=== PATIENT | female | born 1980 | race Caucasian/White ===

== ENCOUNTER 2024-04-24 21:18 | Observation (INO) | payer BC, SELFPAY ==
[2024-04-24] VITALS (15 sets, daily range): BP systolic 152; BP diastolic 77; PULSE 58–99; TEMP 36.5; O2SAT 96–97; BMI 42.4
--- NOTE | 2024-04-24 22:12 | CT_ITS ---
The [address] [address] Patient Name: ROBBI EL MRN: [id number] date: 1980 Sex: F Assigned Patient Location: ER Current Patient Location: ER Accession/Order Number: [id number] Exam Date: 04/24/2024 22:45 Report Date: 04/25/2024 00:20 At the request of: JOYA SALAZAR Procedure: CT abdomen pelvis w con CT ABDOMEN/PELVIS WITH IV CONTRAST. INDICATION: epigastric pain. COMPARISON: There are no other studies available for comparison. TECHNIQUE: Contiguous axial images were obtained from the lung bases to the pelvic floor following the intravenous administration of contrast. Coronal and sagittal reformations are provided. FINDINGS: LOWER LUNGS: Clear. LIVER/BILIARY TREE: No mass. No intrahepatic ductal dilatation. GALLBLADDER: No significant gallbladder wall thickening. Cholelithiasis. CBD: Normal CBD. SPLEEN: Normal in size. PANCREAS: No acute findings. No peripancreatic fluid or inflammation. No pancreatic duct dilatation. No discrete mass. ADRENALS: Normal. KIDNEYS: No hydronephrosis. No radiopaque calculus. STOMACH AND BOWEL: Stomach is unremarkable. No dilated bowel loops. No bowel wall thickening. APPENDIX: Normal appendix. PERITONEAL CAVITY: No fluid. No fat stranding. ABDOMINAL WALL: No subcutaneous stranding. No subcutaneous fluid collection. There is a small umbilical hernia containing fat. LYMPH NODES: No mesenteric or retroperitoneal lymphadenopathy by CT criteria. ABDOMINAL AORTA: No aneurysm. PELVIS: No acute abnormality. Bilateral tubal ligation clips noted. MUSCULOSKELETAL: No acute osseous abnormality. CT/CT abdomen pelvis w con IMPRESSION: 1. No acute abnormality in the abdomen or pelvis. 2. Cholelithiasis without evidence of acute cholecystitis. Consider gallbladder ultrasound if clinically indicated. Electronically authenticated by: PRISCILLA RAE Date: 04/25/2024 00:20
--- NOTE | 2024-04-24 22:14 | ECG_ITS ---
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
[2024-04-24] MEDS: MORPHINE SULFATE 4 MG/ML VIAL IV (22:26)
[2024-04-24] MEDS: ONDANSETRON PF 4 MG/2 ML VIAL IV (22:26)
[2024-04-24] MEDS: 0.9 % SODIUM CHLORIDE 1,000 ML 999 ML IV (22:26)
[2024-04-24] MEDS: FAMOTIDINE/PF 20 MG/2 ML VIAL IV (22:26)
[2024-04-24 22:28] LABS: Basophils Absolute Auto 0.1 10^3/uL (0.0-0.1); Basophils Percent Auto 0.5 % (0.2-2.0); Eosinophils Absolute Auto 0.2 10^3/uL (0.0-0.7); Eosinophils Percent Auto 1.8 % (0.9-7.0); Hematocrit 40.8 % (36.0-48.0); Hemoglobin 13.3 g/dL (12.0-16.0); Immature Granulocytes Abs Auto 0.02 10^3/uL (0.00-0.03); Immature Granulocytes Pct Auto 0.2 % (0.0-0.5); Lymphocytes Absolute Auto 1.7 10^3/uL (1.2-3.8); Lymphocytes Percent Auto 18.3 % (20.5-60.0); Mean Corpuscular HGB Conc 32.6 g/dL (29.9-35.2); Mean Corpuscular Hemoglobin 29.2 pg (26.7-34.0); Mean Corpuscular Volume 89.7 fL (81.0-99.0); Mean Platelet Volume 10.8 fL (9.5-13.5); Monocytes Absolute Auto 0.5 10^3/uL (0.3-0.8); Neutrophils Percent Auto 74.2 % (43.0-75.0); Platelet Count 239 10^3/uL (150-450); Red Blood Count 4.55 10^6/uL (4.20-5.40); Red Cell Distribution Width 13.3 % (11.0-15.0); White Blood Count 9.5 10^3/uL (4.0-11.0)
[2024-04-24 22:46] LABS: Alanine Aminotransferase 28 U/L (14-59); Albumin Globulin Ratio 1.1; Albumin Level 3.7 g/dL (3.4-5.0); Alkaline Phosphatase 75 U/L (46-116); Anion Gap 11.2; Aspartate Amino Transferase 14 U/L (15-37); BUN Creatinine Ratio 11.7; Bilirubin Total 0.3 mg/dL (0.2-1.0); Calcium 9.6 mg/dL (8.5-10.1); Carbon Dioxide 30.4 mmol/L (21.0-32.0); Chloride 102 mmol/L (98-107); Estimated GFR (African America >60 (>=60); Estimated GFR (Non-African Ame >60 (>=60); Globulin 3.5 g/dL; Glucose 115 mg/dL (74-106); Potassium 3.6 mmol/L (3.5-5.1); Sodium 140 mmol/L (136-145); Total Protein 7.2 g/dL (6.4-8.2)
[2024-04-24] MEDS: MORPHINE SULFATE 2 MG/ML SYRINGE IV (23:34)
[2024-04-25] VITALS (56 sets, daily range): BP systolic 100–145; BP diastolic 64–83; PULSE 58–92; TEMP 36.5–36.7; O2SAT 91–98; BMI 44.8
[2024-04-25] MEDS: HYDROMORPHONE HCL 0.5 MG/0.5 ML SYRINGE 0.25 MG IV (00:48)
[2024-04-25] MEDS: DICYCLOMINE HCL 20 MG/2 ML VIAL IM (00:49)
--- NOTE | 2024-04-25 01:02 | ED_ITS ---
HPI HPI - General Adult General Chief complaint: Abdominal Pain Stated complaint: ABDOMINAL PAIN Time Seen by Provider: 04/24/24 22:01 Source: patient Mode of arrival: walk-in Limitations: no limitations History of Present Illness HPI narrative: 43-year-old female to the emergency department chief complaint of right upper quadrant pain. Intermittent pain has been ongoing for several weeks. Tends occur with some meals and at night. Usually resolves after short period of time however it is severe when it occurs. Today she had an episode that started this afternoon has not remitted. She reports pain is severe located in the right upper quadrant. Associate with nausea without vomiting. She denies any fever, sweats, chills. She reports tubal ligation, no other intra-abdominal surgeries. She reports otherwise healthy. Related Data Home Medications ?Medication ?Instructions ?Recorded ?Confirmed No Known Home Medications 04/24/24 04/24/24 Allergies Allergy/AdvReac Type Severity Reaction Status Date / Time No Known Drug Allergies Allergy Verified 04/24/24 21:37 Opioid HPI Opioid Management Most Recent Opioid Data: Last Pain Scale 8 04/24/24 22:01 Review of Systems ROS Status of ROS 10 or more systems reviewed and unremark able except as noted in history and below Exam Narrative Exam Narrative: VITALS: I have reviewed the triage vital signs. GENERAL: Well developed, well appearing adult in no acute distress. NEURO: Alert and oriented. Moves all extremities. Face is symmetric and expressive. EYES: PERRL. No scleral icterus or conjunctival injection. No discharge. HENT: Normocephalic, atraumatic. Hearing is grossly intact. Nares grossly patent and without discharge. Mucous membranes moist. NECK: No JVD. Patient moves neck without restriction. CARDIO: Rhythm regular. Normal rate. No murmur, rub, or gallop. Pulses equal bilaterally in the upper and lower extremity. No lower extremity edema. PULM: Lungs clear to auscultation in all shafer. No wheezes, rales, or rhonchi. No conversational dyspnea. No splinting, stridor, or accessory muscle use. GI/: Severe right upper quadrant tenderness. No rebound or guarding. EXTREMITIES: Symmetric muscle bulk. No joint swelling. No clubbing, cyanosis, or deformity. SKIN: Warm and dry. Normal turgor. No rash or lesions appreciated. PSYCH: Mood, affect, and interaction is appropriate to the setting. Constitutional Vital Signs, click to edit/add: Last Vital Signs Temp 97.7 F 04/24/24 21:32 Pulse 66 04/25/24 00:50 Resp 16 04/25/24 00:50 BP 152/77 H 04/24/24 21:32 Pulse Ox 98 04/25/24 00:50 O2 Del Method Room Air 04/24/24 21:32 Course Vital Signs Vital signs: Vital Signs Temperature 97.7 F 04/24/24 21:32 Pulse Rate 71 04/24/24 21:32 Respiratory Rate 18 04/24/24 21:32 Blood Pressure 152/77 H 04/24/24 21:32 Pulse Oximetry 96 04/24/24 21:32 Oxygen Delivery Method Room Air 04/24/24 21:32 Temperature 97.7 F 04/24/24 21:32 Pulse Rate 66 04/25/24 00:50 Respiratory Rate 16 04/25/24 00:50 Blood Pressure 152/77 H 04/24/24 21:32 Pulse Oximetry 98 04/25/24 00:50 Oxygen Delivery Method Room Air 04/24/24 21:32 Medical Decision Making MDM Narrative Medical decision making narrative: 43-year-old female to the emergency department chief complaint of right upper quadrant pain. Vital stable, the patient is afebrile. She does have significant amount of tenderness on abdominal examination. Basic labs, CT scan ordered. Symptomatic medications. Lab work is unremarkable. CT scan shows cholelithiasis without evidence of acute cholecystitis at this time. Upon my review of the imaging her gallbladder does appear in the upper limits of normal. She does have a stone that is large right at the neck. Patient reevaluated several times her pain is unremitting. She required several rounds of occasions for pain control. I did call and discussed the case with Dr. Carter the on-call surgeon. He has for a dose of Zosyn to be given, and presented to be performed, he will see the patient in consultation. He recommended mission to the hospitalist. Case was discussed with Stephanie who agreed to accept the patient to her service. Patient is very grateful for the admission and consultation with surgery. Medical Records Medical records reviewed: Yes I reviewed the patient's medical records Lab Data Lab results reviewed: Yes I reviewed the patient's lab results Labs: Lab Results 04/24/24 Range/Units 22:20 WBC 9.5 (4.0-11.0) 10^3/uL RBC 4.55 (4.20-5.40) 10^6/uL Hgb 13.3 (12.0-16.0) g/dL Hct 40.8 (36.0-48.0) % MCV 89.7 (81.0-99.0) fL MCH 29.2 (26.7-34.0) pg MCHC 32.6 (29.9-35.2) g/dL RDW 13.3 (11.0-15.0) % Plt Count 239 (150-450) 10^3/uL MPV 10.8 (9.5-13.5) fL Neut % (Auto) 74.2 (43.0-75.0) % Lymph % (Auto) 18.3 L (20.5-60.0) % Jewell % (Auto) 5.0 (1.7-12.0) % Eos % (Auto) 1.8 (0.9-7.0) % Baso % (Auto) 0.5 (0.2-2.0) % Neut # (Auto) 7.0 H (1.4-6.5) 10^3/uL Lymph # (Auto) 1.7 (1.2-3.8) 10^3/uL Jewell # (Auto) 0.5 (0.3-0.8) 10^3/uL Eos # (Auto) 0.2 (0.0-0.7) 10^3/uL Baso # (Auto) 0.1 (0.0-0.1) 10^3/uL Abs Immat Gran (auto) 0.02 (0.00-0.03) 10^3/uL Imm/Tot Granulo (auto) 0.2 (0.0-0.5) % Sodium 140 (136-145) mmol/L Potassium 3.6 (3.5-5.1) mmol/L Chloride 102 (98-107) mmol/L Carbon Dioxide 30.4 (21.0-32.0) mmol/L Anion Gap 11.2 BUN 11.0 (7.0-18.0) mg/dL Creatinine 0.94 (0.55-1.02) mg/dL Est GFR ( Amer) >60 (>=60) Est GFR (Non-Af Amer) >60 (>=60) BUN/Creatinine Ratio 11.7 Glucose 115 H (74-106) mg/dL Calcium 9.6 (8.5-10.1) mg/dL Total Bilirubin 0.3 (0.2-1.0) mg/dL AST 14 L (15-37) U/L ALT 28 (14-59) U/L Alkaline Phosphatase 75 (46-116) U/L Troponin I High Sens 4.0 (4.0-51.3) pg/mL Total Protein 7.2 (6.4-8.2) g/dL Albumin 3.7 (3.4-5.0) g/dL Globulin 3.5 g/dL Albumin/Globulin Ratio 1.1 Lipase 25.0 (16.0-77.0) U/L Imaging Data CT scan - abdomen: Attestation: I have reviewed the pertinent imaging results. Radiologist's impression: ITS Impressions Abdomen/Pelvis CT 04/24/24 22:12 IMPRESSION: 1. No acute abnormality in the abdomen or pelvis. 2. Cholelithiasis without evidence of acute cholecystitis. Consider gallbladder ultrasound if clinically indicated. Electronically authenticated by: PRISCILLA RAE Date: 04/25/2024 00:20 ECG Data Attestation: I personally reviewed and interpreted this ECG as follows: (Normal sinus rhythm. No STEMI. Normal QTc. ) Discharge Plan Discharge Chief Complaint: Abdominal Pain Clinical Impression: Biliary colic Patient Disposition: Admitted as Observation Time of Disposition Decision: 00:52 Condition: Good
[2024-04-25] MEDS: PIPERACILLIN SODIUM/TAZOBACTAM 3.375 GM in 0.9 % SODIUM CHLORIDE 50 ML IV ×3 (01:10→15:59)
[2024-04-25] MEDS: DEXTROSE 5%-0.9% NACL 1,000 ML 1,000 ML 100 ML IV (02:00)
[2024-04-25 05:47] LABS: Basophils Percent Auto 0.5 % (0.2-2.0); Eosinophils Absolute Auto 0.2 10^3/uL (0.0-0.7); Eosinophils Percent Auto 2.3 % (0.9-7.0); Hematocrit 37.5 % (36.0-48.0); Immature Granulocytes Abs Auto 0.02 10^3/uL (0.00-0.03); Immature Granulocytes Pct Auto 0.2 % (0.0-0.5); Lymphocytes Absolute Auto 2.2 10^3/uL (1.2-3.8); Lymphocytes Percent Auto 27.3 % (20.5-60.0); Mean Corpuscular Hemoglobin 28.7 pg (26.7-34.0); Mean Corpuscular Volume 89.7 fL (81.0-99.0); Mean Platelet Volume 10.9 fL (9.5-13.5); Monocytes Absolute Auto 0.5 10^3/uL (0.3-0.8); Monocytes Percent Auto 6.7 % (1.7-12.0); Neutrophils Absolute Auto 5.1 10^3/uL (1.4-6.5); Platelet Count 224 10^3/uL (150-450); Red Blood Count 4.18 10^6/uL (4.20-5.40); Red Cell Distribution Width 13.4 % (11.0-15.0); White Blood Count 8.1 10^3/uL (4.0-11.0)
[2024-04-25] MEDS: HYDROMORPHONE HCL 1 MG/ML CARTRIDGE 0.25 MG IVP (05:50)
[2024-04-25] MEDS: ONDANSETRON PF 4 MG/2 ML VIAL IV ×2 (05:55→15:04)
[2024-04-25 06:07] LABS: Alanine Aminotransferase 24 U/L (14-59); Albumin Globulin Ratio 1.1; Albumin Level 3.1 g/dL (3.4-5.0); Alkaline Phosphatase 59 U/L (46-116); Anion Gap 14.3; Aspartate Amino Transferase 10 U/L (15-37); BUN Creatinine Ratio 9.2; Bilirubin Total 0.3 mg/dL (0.2-1.0); Calcium 8.7 mg/dL (8.5-10.1); Carbon Dioxide 26.3 mmol/L (21.0-32.0); Chloride 105 mmol/L (98-107); Estimated GFR (African America >60 (>=60); Estimated GFR (Non-African Ame >60 (>=60); Globulin 2.8 g/dL; Glucose 107 mg/dL (74-106); Potassium 3.6 mmol/L (3.5-5.1); Sodium 142 mmol/L (136-145); Total Protein 5.9 g/dL (6.4-8.2)
--- NOTE | 2024-04-25 07:00 | US_ITS ---
[address] [address] Patient Name: ROBBI EL MRN: [id number] date: 1980 Sex: F Assigned Patient Location: MS Current Patient Location: Accession/Order Number: [id number] Exam Date: 04/25/2024 08:00 Report Date: 04/25/2024 08:43 At the request of: GREGG MACK Procedure: US right upper quadrant EXAM: US right upper quadrant HISTORY: Acute cholelithiasis r/o cholecystitis COMPARISON: CT abdomen/pelvis dated 04/24/2024. TECHNIQUE: Routine ultrasound right upper quadrant abdomen. FINDINGS: Pancreas: Unremarkable. Liver: Unremarkable with a Dharmesh's lobe configuration, a variant of normal. Gallbladder: There is a 3.2 cm gallstone within the gallbladder neck. The gallbladder is mildly dilated however the gallbladder wall is normal thickness measuring 2 mm. There is no pericholecystic fluid or sonographic Brown's sign. The common duct is normal size measuring 4.7 mm. There is also a 1.1 x 0.7 x 1.3 cm polyp within the gallbladder fundus with associated vascularity on the color images. Appropriate clinical management is recommended. A follow-up gallbladder ultrasound examination in 3 months is recommended to confirm stability unless other clinical management is indicated. Right kidney: Unremarkable measuring 12.3 x 5.2 x 3.8 cm. Ascites: None. US/US right upper quadrant IMPRESSION: There is a 3.2 cm gallstone within the gallbladder neck. The gallbladder is mildly dilated however the gallbladder wall is normal thickness measuring 2 mm. There is no pericholecystic fluid or sonographic Brown's sign. The common duct is normal size measuring 4.7 mm. There is a 1.1 x 0.7 x 1.3 cm polyp within the gallbladder fundus with associated vascularity on the color images. Appropriate clinical management is recommended. A follow-up gallbladder ultrasound examination in 3 months is recommended to confirm stability unless other clinical management is indicated. The liver, pancreas and right kidney are unremarkable. Electronically authenticated by: TOMAS MCNEILL Date: 04/25/2024 08:43
--- NOTE | 2024-04-25 07:48 | CM.NOTE ---
Rounds made with Dr. Suh, awaiting general surgery consult for further recommendations. Pt remains NPO status.
--- NOTE | 2024-04-25 08:19 | P.HP_ITS ---
HPI H&P: HPI History of Present Illness Chief complaint: ABDOMINAL PAIN BILIARY COEIC Narrative: Patient with a history of intermittent right upper quadrant abdominal pain after eating. Normally the symptoms resolved fairly quickly but this 1 did not. She presented to the emergency room. CT scan shows consistent evidence for cholelithiasis with possible cholecystitis. Ultrasound currently is pending. Patient has upper abdominal pain that does improve somewhat with Tums as well. I saw patient up on the medical surgical floor, she was resting in bed comfortably, denies any pain at rest. No family history of cholelithiasis. Opioid HPI Opioid Management Most Recent Pain and Opioid Data: Last Pain Scale 4 04/25/24 07:12 Last Pain Assessment 04/25/24 07:12 Last MAR Pain Assessment 04/25/24 07:07 Last ORT Total Score 1 04/25/24 01:43 Last ORT Risk Category Low Risk 04/25/24 01:43 Review of Systems ROS Status of ROS 10 or more systems reviewed and unremark able except as noted in history and below PFSH PFSH Family History (Updated 04/25/24 @ 01:33 by Catrachita Payne RN) Other Family history of COPD (chronic obstructive pulmonary disease) Family history of cancer Family history of diabetes mellitus Family history of myocardial infarction Family history of stroke Social History (Updated 04/25/24 @ 01:34 by Catrachita Payne RN) Within the past year, how often did you have a drink containing alcohol: never Score interpretation: A score less than 3 is consistent with normal alcohol consumption. 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 Highest level of school completed/degree received: high school graduate Are you now , , , , never or living with a partner: In a typical week, how many times do you talk on the telephone with family, friends, or neighbors: 3 or more times per week How often do you get together with friends or relatives: 3 or more times per week Do you think of yourself as: straight/heterosexual Gender Identity: female Meds Home Medications and Allergies Home Medications ?Medication ?Instructions ?Recorded ?Confirmed ?Type No Known Home Medications 04/24/24 04/24/24 History Allergies Allergy/AdvReac Type Severity Reaction Status Date / Time No Known Drug Allergies Allergy Verified 04/24/24 21:37 Exam Constitutional Vital Signs, click to edit/add: Last Vital Signs Temp 98.0 F 04/25/24 07:10 Pulse 66 04/25/24 07:10 Resp 16 04/25/24 07:12 BP 103/68 04/25/24 07:10 Pulse Ox 95 04/25/24 07:10 O2 Del Method Room Air 04/25/24 07:10 Documenting provider has reviewed patient's vital signs: yes Common normals: no apparent distress Chest Common normals: inspection of chest normal Respiratory Common normals: normal respiratory effort, no retractions and clear to auscultation bilaterally Cardio Common normals: regular rate, regular rhythm and no murmurs GI Common normals: Normal to inspection, nondistended, normoactive bowel sounds present and soft to palpation; tender (Epigastric and right upper quadrant tenderness mildly positive Brown's) Palpation: tender Details: epigastric, RUQ and Brown's sign Neuro Common normals: oriented x3, CN's II-XII intact bilaterally and moves all extremities Results Labs Labs: Short CBC 04/24/24 04/25/24 Range/Units 22:20 05:17 WBC 9.5 8.1 (4.0-11.0) 10^3/uL Hgb 13.3 12.0 (12.0-16.0) g/dL Hct 40.8 37.5 (36.0-48.0) % Plt Count 239 224 (150-450) 10^3/uL BMP 04/24/24 04/25/24 22:20 05:17 Sodium 140 142 Potassium 3.6 3.6 Chloride 102 105 Carbon Dioxide 30.4 26.3 BUN 11.0 7.0 Creatinine 0.94 0.76 Glucose 115 H 107 H Calcium 9.6 8.7 Liver Function 04/24/24 04/25/24 Range/Units 22:20 05:17 Total Bilirubin 0.3 0.3 (0.2-1.0) mg/dL AST 14 L 10 L (15-37) U/L ALT 28 24 (14-59) U/L Alkaline Phosphatase 75 59 (46-116) U/L Albumin 3.7 3.1 L (3.4-5.0) g/dL Assessment and Plan Assessment and Plan (1) Biliary colic: Plan Admission findings: Elevated blood pressure, CT evidence for possible acute cholecystitis Right upper quadrant pain-possible acute cholecystitis-patient was placed on IV antibiotics, consultation to general surgery, ultrasound pending Epigastric tenderness-start patient on IV Protonix Elevated blood pressure-this was just on admission, improved currently this morning. Monitor daily Admission status: Patient mated with possible acute cholecystitis-medically necessary treatment likely to only span 1 midnight. Observation status.
[2024-04-25] MEDS: PANTOPRAZOLE SODIUM 40 MG VIAL IV (09:39)
[2024-04-25 11:31] LABS: HCG Quantitative <1 mIU/mL
[2024-04-25] MEDS: INDOCYANINE GREEN 25 MG VIAL INJ (11:38)
[2024-04-25] MEDS: LACTATED RINGER'S SOLUTION 1,000 ML 50 ML IV (11:43)
--- NOTE | 2024-04-25 11:56 | P.GSCN_ITS ---
History of Present Illness Consult details Consult date: 04/25/24 Reason for consult: gallstones Requesting physician: Edilson Armenta Narrative: Leena Joe is a 43-year-old female who presented to the [place] ED early this morning with complaints of bilateral upper abdominal pain radiating under to the Reath rib cage to the back. She rated the pain as a 10 out of 10. Sharp and consistent. It began yesterday afternoon at 2 PM after eating sausage and eggs for lunch. She had similar pains about a week ago. Her pain is down to a 4 out of 10 currently. She underwent a CT scan of the abdomen and pelvis which showed cholelithiasis without acute cholecystitis. Her CBC and CMP were unremarkable. I recommended an ultrasound of the gallbladder which was performed earlier this morning and it shows 1 large stone in the neck of the gallbladder measuring about 3.5 cm and a possible polyp. It does not show any gallbladder wall thickening or ductal dilatation. She denies any fevers chills jaundice or miriam colored stools. 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 She has 3 children. Her is at the bedside. She denies any medical problems. Her BMI is 44. She denies chest pain shortness of breath or any diabetes. Her PCP is Kalyani duffy DATABASE DESIGN ANALYST [facility] or [place]. 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 Highest level of school completed/degree received: high school graduate Are you now , , , , never or living with a partner: In a typical week, how many times do you talk on the telephone with family, friends, or neighbors: 3 or more times per week How often do you get together with friends or relatives: 3 or more times per week Do you think of yourself as: straight/heterosexual Gender Identity: female Meds Home Medications and Allergies Home Medications ?Medication ?Instructions ?Recorded ?Confirmed ?Type No Known Home Medications 04/24/24 04/24/24 History Allergies Allergy/AdvReac Type Severity Reaction Status Date / Time No Known Drug Allergies Allergy Verified 04/24/24 21:37 Exam Constitutional Vital Signs, click to edit/add: Last Vital Signs Temp 98.1 F 04/25/24 11:50 Pulse 65 04/25/24 11:50 Resp 16 04/25/24 11:50 BP 111/77 04/25/24 11:50 Pulse Ox 93 L 04/25/24 11:50 O2 Del Method Room Air 04/25/24 11:50 Documenting provider has reviewed patient's vital signs: yes Common normals: no apparent distress, average body habitus, oriented x3, healthy appearing, alert and well nourished General appearance: cooperative, comfortable, well kempt and well developed Nutritional appearance: obese Orientation/consciousness: Yes awake, Yes oriented to person, Yes oriented to place and Yes oriented to time HENCT Common normals: normocephalic Eye Common normals: PERRL, EOMs intact bilaterally and no scleral icterus Pupil: PERRL Respiratory Common normals: normal respiratory effort Auscultation: clear to auscultation bilaterally Cardio Common normals: regular rate and regular rhythm Rate: regular rate GI Common normals: Normal to inspection, nondistended, normoactive bowel sounds present, soft to palpation, non-tender, no hepatosplenomegaly and no masses Neuro Common normals: oriented x3 and CN's II-XII intact bilaterally Results Labs Labs: Abnormal lab results 04/24/24 04/25/24 Range/Units 22:20 05:17 RBC 4.18 L (4.20-5.40) 10^6/uL Lymph % (Auto) 18.3 L (20.5-60.0) % Neut # (Auto) 7.0 H (1.4-6.5) 10^3/uL Glucose 115 H 107 H (74-106) mg/dL AST 14 L 10 L (15-37) U/L Total Protein 5.9 L (6.4-8.2) g/dL Albumin 3.1 L (3.4-5.0) g/dL Diabetes panel 04/24/24 04/25/24 Range/Units 22:20 05:17 Sodium 140 142 (136-145) mmol/L Potassium 3.6 3.6 (3.5-5.1) mmol/L Chloride 102 105 (98-107) mmol/L Carbon Dioxide 30.4 26.3 (21.0-32.0) mmol/L BUN 11.0 7.0 (7.0-18.0) mg/dL Creatinine 0.94 0.76 (0.55-1.02) mg/dL Glucose 115 H 107 H (74-106) mg/dL Calcium 9.6 8.7 (8.5-10.1) mg/dL AST 14 L 10 L (15-37) U/L ALT 28 24 (14-59) U/L Alkaline Phosphatase 75 59 (46-116) U/L Total Protein 7.2 5.9 L (6.4-8.2) g/dL Albumin 3.7 3.1 L (3.4-5.0) g/dL Calcium panel 04/24/24 04/25/24 Range/Units 22:20 05:17 Calcium 9.6 8.7 (8.5-10.1) mg/dL Albumin 3.7 3.1 L (3.4-5.0) g/dL Pituitary panel 04/24/24 04/25/24 Range/Units 22:20 05:17 Sodium 140 142 (136-145) mmol/L Potassium 3.6 3.6 (3.5-5.1) mmol/L Chloride 102 105 (98-107) mmol/L Carbon Dioxide 30.4 26.3 (21.0-32.0) mmol/L BUN 11.0 7.0 (7.0-18.0) mg/dL Creatinine 0.94 0.76 (0.55-1.02) mg/dL Glucose 115 H 107 H (74-106) mg/dL Calcium 9.6 8.7 (8.5-10.1) mg/dL Adrenal panel 04/24/24 04/25/24 Range/Units 22:20 05:17 Sodium 140 142 (136-145) mmol/L Potassium 3.6 3.6 (3.5-5.1) mmol/L Chloride 102 105 (98-107) mmol/L Carbon Dioxide 30.4 26.3 (21.0-32.0) mmol/L BUN 11.0 7.0 (7.0-18.0) mg/dL Creatinine 0.94 0.76 (0.55-1.02) mg/dL Glucose 115 H 107 H (74-106) mg/dL Calcium 9.6 8.7 (8.5-10.1) mg/dL Total Bilirubin 0.3 0.3 (0.2-1.0) mg/dL AST 14 L 10 L (15-37) U/L ALT 28 24 (14-59) U/L Alkaline Phosphatase 75 59 (46-116) U/L Total Protein 7.2 5.9 L (6.4-8.2) g/dL Albumin 3.7 3.1 L (3.4-5.0) g/dL All other labs normal. Imaging Abdomen CT scan report/results: report reviewed and image reviewed Abdominal ultrasound report/results: report reviewed Assessment and Plan Assessment and Plan (1) Biliary colic: (2) Cholelithiasis and cholecystitis without obstruction: (3) Morbid obesity with BMI of 40.0-44.9, adult: Plan Patient was offered robotic cholecystectomy with possible open cholecystectomy. Risks benefits and alternatives to surgery could include infection, bleeding, bile duct injury, blood clots to the legs or lungs, pneumonia, heart attack, stroke, and/or . She and her understood all of the above and she wished to proceed. Her other option with observation with the understanding that her symptoms could return and she could contract pancreatitis or choledocholithiasis and need emergency procedures done. She wished to proceed.
--- NOTE | 2024-04-25 12:02 | PM.GSPRC ---
Date of procedure: 04/25/24 Indications for Procedure: Cholecystitis with cholelithiasis/biliary colic Pre-op diagnosis: Cholecystitis with cholelithiasis/biliary colic Post-op diagnosis: same as pre-op Procedure: Cholecystectomy with IC-Green Findings: Acute cholecystitis with cholelithiasis Anesthesia: VICTOR HUGO Surgeon: Herve Sotelo Procedure Summary: After again explaining the risks and benefits of the procedure in the preoperative care unit consent was obtained. ?The patient was taken back to the operative room and placed on the operative room table. General endotracheal anesthesia was induced and preoperative antibiotics were given. ?Appropriate time-out was performed. ?Right arm was?tucked at the side. ?Then the bed was positioned appropriately. ?The abdomen was prepped and draped in normal sterile fashion. A periumbilical incision was made. ?Dissection was carried down to the fascia. ?Fascia was elevated with saray clamps and entered by incising the fascia in the midline using Burns technique and placing to use shaped 0 Vicryl sutures.. A 12 mm port was placed into the abdomen and the abdomen was insufflated, there were no complications with insufflation. ?The scope and camera was brought in and then 3 more ports were placed. An 8?mm port was placed in the right lateral position. Two additional?8 mm Davinci ports were placed, 8 cm to the left and one to the right of the umbilicus. ?The patient was then placed in reverse Trendelenburg position and slightly turned to the left. The Lokuinci robot was docked. The 4th arm was used to grasp the dome of the gallbladder superiorly. ?The peritoneal attachments were taken down with meticulous dissection laterally and medially from the gallbladder. ?At this point the infundibular gallbladder was retracted laterally and a critical view was obtained. ?With the cystic duct inferiorly cystic artery medially and the liver posteriorly. ?Two clips were placed on the patient side and 1 on the specimen side of both the cystic duct and the cystic artery. Visualization of the cystic duct common duct junction was carried out with IC-Green. ?The cystic duct and cystic artery were transected with scissors. ?The remainder of the gallbladder was taken off of the gallbladder fossa using electrocautery. The gallbladder was then removed through the umbilical port using Endo-Catch bag. ?The gallbladder fossa was visualized again to confirm no bleeding and no leak from the cystic duct. The robot was undocked from the patient. The abdomen was deinsufflated.? The umbilical incision fascia was closed with a [id number] 0 Vicryl. The skin was closed at all the incisions with 4 0 Monocryl. All incisions and underlying muscle was anesthetized with local anesthetic.? Steri-Strips were then placed over the incisions with a sterile dressing.. The patient was extubated and had no immediate postoperative complications. Patient was taken to the PACU in stable condition. Professional Services Manager: JULIANN Zamudio Estimated blood loss (mL): 5 Specimens: GallBladder and stone Complications: No Condition: stable Disposition: PACU
[2024-04-25] MEDS: LACTATED RINGER'S SOLUTION 1,000 ML 125 ML IV (14:02)
[2024-04-25] MEDS: BUPIVACAINE HCL 0.5% PF 50 MG/10 ML VIAL 20 ML INJ (14:22)
[2024-04-25] MEDS: HYDROMORPHONE HCL 1 MG/ML CARTRIDGE INJ (14:55)
[2024-04-25] MEDS: HYDROMORPHONE HCL 0.5 MG/0.5 ML SYRINGE IV (15:00)
[2024-04-25] MEDS: OXYCODONE HCL/ACETAMINOPHEN 5MG/325MG 1 TAB PO (15:18)
--- NOTE | 2024-04-25 20:10 | PC.NURSE ---
Patient discharged without a prescription for pain med. Dr. Sotelo was contacted and he referred the discharge and pain medication should have been done by Dr. Suh. Currently now after 8PM, I notified OMAR Humphreys of situation and she contacted Dr. Suh. He is to call [facility] to order a script. Over Short And Damage Clerk notified Chapito () of [facility] that a prescription should be available tomorrow at [facility].
--- NOTE | 2024-04-26 14:33 | CM.DCFOLLOWU ---
Person spoke with:patient How are you feeling? well How is your pain?controlled, taking medication at scheduled time Did you understand your discharge instructions? yes Do you have any questions about your discharge instructions? no Were you given any prescriptions at discharge? yes Were you able to get your prescriptions filled? yes Do you understand how to take your medications as ordered? yes Do you have any questions about your follow up appointment and do you plan to keep your follow up appointment? no questions, reviewed follow ups Is there anything else that you would like to discuss? Had questions about Health E Chart, provided her with the information. Pt also switched PCP, advised to let registration know the next time they are here Questions/Comments/Concerns/Other:N/A
== END 2024-04-25 18:30 | disposition home or self-care (01) ==
LOC: ER 04-25 01:13 → MS 04-25 01:38
PROVIDERS: Registered Nurse; Surgery; Admitting Provider Family Medicine; Emergency Provider Student in an Organized Health Care Education/Training Program; PCP Family Medicine; Visit Provider Family Medicine
PROC: (CPT 00790; principal; 2024-04-25 12:05)
DX: K80.62 Calculus of gallbladder and bile duct with acute cholecystitis without obstruction (principal); I10 Essential (primary) hypertension; E66.01 Morbid (severe) obesity due to excess calories; Z68.41 Body mass index [BMI] 40.0-44.9, adult; Z87.891 Personal history of nicotine dependence
CPT/HCPCS: 00790; 47562; 36415; 74177; 76705; 80053; 83690; 84484; 84702; 85025; 93005; 96365; 96366; 96372; 96375; 96376; 99285; G0378; J0500; J0665; J1100; J1170; J1885; J2250; J2270; J2405; J2543; J2704; J2710; J3010; Q9967